=== PATIENT | female | born 1930 | race Two or more races ===

== ENCOUNTER 2016-05-04 13:54 | Inpatient (IN) | payer MEDICARE, MEDICAID ==
[~2016-05-04] VITALS: Ht 149.9 cm; Wt 79.4 kg
[2016-05-04] MEDS ORDERED: TRAMADOL HCL 50 MG TABLET ONE (15:13)
[2016-05-04] MEDS ORDERED: TRAMADOL HCL 50 MG TABLET PO ONE (15:30)
[2016-05-04 16:33] LABS: BASOPHILS % (AUTO) 0.3 % (0.0-2.0); DIFF TOTAL % 100 %; HEMATOCRIT 40 % (33-45); HEMOGLOBIN 12.9 g/dL (11.5-14.8); LYMPHOCYTES # (AUTO) 1.3 /CMM (0.8-4.8); LYMPHOCYTES % (AUTO) 14.6 % (20.0-44.0); MEAN CORPUSCULAR HEMOGLOBIN 28 PG (26.0-33.0); MEAN CORPUSCULAR HGB CONC 32 g/dl (31.0-36.0); MEAN CORPUSCULAR VOLUME 88 fL (82-100); MONOCYTES # (AUTO) 0.4 /CMM (0.1-1.30); MONOCYTES % (AUTO) 4.7 % (2.0-12.0); NEUTROPHILS # (AUTO) 7.1 /CMM (1.8-8.9); NEUTROPHILS % (AUTO) 80.4 % (43.0-81.0); PLATELET COUNT (AUTO) 246 /CMM (150-450); RED BLOOD CELL COUNT(AUTO) 4.53 MIL/uL (4.0-5.2); WHITE BLOOD COUNT (AUTO) 8.8 K/uL (4.3-11.0)
[2016-05-04 16:40] LABS: CALCIUM, SERUM 9.4 mg/dL (8.5-10.1); CREATININE 0.9 mg/dL (0.6-1.3); POTASSIUM 4.5 mmol/L (3.5-5.1)
[2016-05-04] MEDS ORDERED: CHOL100044 PO (17:05)
[2016-05-04] MEDS ORDERED: CITA20TA11 PO (17:05)
[2016-05-04] MEDS ORDERED: SIMV20TA6 PO (17:05)
[2016-05-04] MEDS ORDERED: PRIM250T PO (17:05)
[2016-05-04] MEDS ORDERED: ALPR0.255 PO (17:05)
[2016-05-04] MEDS ORDERED: LISI-603 PO (17:05)
[2016-05-04] MEDS ORDERED: OMEP40CA37 PO (17:05)
[2016-05-04] MEDS ORDERED: Z GUARD REMEDY 2 OZ OINT TP PRN (18:00)
[2016-05-04] MEDS ORDERED: MAG HYDROX/AL HYDROX/SIMETH 30 ML UDC PO PRN (18:00)
[2016-05-04] MEDS ORDERED: MAGNESIUM HYDROXIDE 30 ML UDC PO PRN (18:00)
[2016-05-04] MEDS ORDERED: ZOLPIDEM TARTRATE 5 MG TABLET PO PRN (18:00)
[2016-05-04] MEDS ORDERED: ONDANSETRON HCL/PF 4 MG/2 ML VIAL IVP PRN (18:00)
[2016-05-04 18:20] VITALS: BP 133/87
[2016-05-04 18:25] VITALS: BP 133/87
[2016-05-04] MEDS: SIMVASTATIN 20 MG TABLET PO SCH (18:52)
[2016-05-04] MEDS: ALPRAZOLAM 0.25 MG TABLET PO SCH (18:52)
[2016-05-04] MEDS: LISINOPRIL (20MG) 20 MG TABLET PO SCH (18:53)
[2016-05-04 20:00] VITALS: BP 125/72
[2016-05-04] MEDS: PANTOPRAZOLE 40 MG TABLET.DR PO SCH (20:36)
[2016-05-04] MEDS: PRIMIDONE 250 MG TABLET PO SCH (20:36)
[2016-05-04] MEDS: TRAMADOL HCL 50 MG TABLET PO PRN (21:05)
[2016-05-05] MEDS: TRAMADOL HCL 50 MG TABLET PO PRN ×2 (02:47→10:36)
[2016-05-05 06:31] LABS: KETONES,URINE NEGATIVE (NEGATIVE); LEUKOCYTE ESTERASE ,URINE NEGATIVE (NEGATIVE); PH,URINE 6.5 (5.0-8.0)
[2016-05-05] MEDS ORDERED: PRIMIDONE 250 MG TABLET PO SCH (07:00)
[2016-05-05 07:03] LABS: CALCIUM, SERUM 9.3 mg/dL (8.5-10.1); CREATININE 0.7 mg/dL (0.6-1.3); PHOSPHORUS 2.6 mg/dL (2.5-4.9); POTASSIUM 4.3 mmol/L (3.5-5.1)
[2016-05-05 07:08] LABS: ADD UA MICROSCOPIC YES
[2016-05-05 07:17] LABS: BASOPHILS % (AUTO) 0.2 % (0.0-2.0); DIFF TOTAL % 100 %; HEMATOCRIT 37 % (33-45); LYMPHOCYTES # (AUTO) 1.6 /CMM (0.8-4.8); MEAN CORPUSCULAR HEMOGLOBIN 29 PG (26.0-33.0); MEAN CORPUSCULAR HGB CONC 33 g/dl (31.0-36.0); MEAN CORPUSCULAR VOLUME 89 fL (82-100); MONOCYTES # (AUTO) 0.7 /CMM (0.1-1.30); MONOCYTES % (AUTO) 5.6 % (2.0-12.0); NEUTROPHILS # (AUTO) 10.2 /CMM (1.8-8.9); NEUTROPHILS % (AUTO) 81.2 % (43.0-81.0); PLATELET COUNT (AUTO) 240 /CMM (150-450); RED BLOOD CELL COUNT(AUTO) 4.13 MIL/uL (4.0-5.2); WHITE BLOOD COUNT (AUTO) 12.6 K/uL (4.3-11.0)
[2016-05-05 07:26] LABS: RBC,URINE 0-2 /HPF (0-2)
[2016-05-05 07:27] LABS: ADD URINE CULTURE YES; MUCUS,URINE Few /LPF (None Seen); WBC,URINE 0-2 /HPF (0-3)
[2016-05-05 07:55] VITALS: BP 115/60
[2016-05-05 08:00] VITALS: BP 115/60
[2016-05-05] MEDS: CITALOPRAM HYDROBROMIDE 20 MG TABLET PO SCH (08:18)
[2016-05-05] MEDS: CHOLECALCIFEROL 1,000 UNIT TABLET (VIT D3) PO SCH (08:18)
[2016-05-05] MEDS: PRIMIDONE 250 MG TABLET PO SCH ×2 (08:18→16:14)
[2016-05-05] MEDS: PANTOPRAZOLE 40 MG TABLET.DR PO SCH ×2 (08:19→20:44)
[2016-05-05] MEDS ORDERED: Medication Not On Formulary EA (Omeprazole 40 MG) PO SCH (09:00)
[2016-05-05] MEDS ORDERED: ONDANSETRON HCL/PF 4 MG/2 ML VIAL IM PRN (10:30)
[2016-05-05] MEDS ORDERED: ONDANSETRON 4 MG TAB.RAPDIS SL PRN (14:00)
[2016-05-05 16:00] VITALS: BP 96/52
[2016-05-05] MEDS: SIMVASTATIN 20 MG TABLET PO SCH (17:11)
[2016-05-05] MEDS: LISINOPRIL (20MG) 20 MG TABLET PO SCH (17:12)
[2016-05-05] MEDS: ALPRAZOLAM 0.25 MG TABLET PO SCH (17:12)
[2016-05-05] MEDS ORDERED: TRAMADOL HCL 50 MG TABLET PO PRN (18:00)
[2016-05-05 19:58] VITALS: BP 90/55
[2016-05-05] MEDS: ACETAMINOPHEN 325 MG TABLET PO PRN (21:46)
[2016-05-06] MEDS: ACETAMINOPHEN 325 MG TABLET PO PRN (06:42)
[2016-05-06] MEDS: PRIMIDONE 250 MG TABLET PO SCH ×2 (06:42→17:20)
[2016-05-06 06:55] LABS: BASOPHILS % (AUTO) 0.1 % (0.0-2.0); DIFF TOTAL % 100 %; HEMATOCRIT 35 % (33-45); HEMOGLOBIN 11.5 g/dL (11.5-14.8); LYMPHOCYTES # (AUTO) 2.3 /CMM (0.8-4.8); LYMPHOCYTES % (AUTO) 20.4 % (20.0-44.0); MEAN CORPUSCULAR HEMOGLOBIN 30 PG (26.0-33.0); MEAN CORPUSCULAR HGB CONC 33 g/dl (31.0-36.0); MEAN CORPUSCULAR VOLUME 89 fL (82-100); MONOCYTES % (AUTO) 8.9 % (2.0-12.0); NEUTROPHILS # (AUTO) 7.9 /CMM (1.8-8.9); NEUTROPHILS % (AUTO) 70.6 % (43.0-81.0); PLATELET COUNT (AUTO) 217 /CMM (150-450); WHITE BLOOD COUNT (AUTO) 11.1 K/uL (4.3-11.0)
[2016-05-06 07:17] LABS: CALCIUM, SERUM 9.1 mg/dL (8.5-10.1); CREATININE 0.9 mg/dL (0.6-1.3); POTASSIUM 4.3 mmol/L (3.5-5.1)
[2016-05-06 08:00] VITALS: BP 117/73
[2016-05-06] MEDS: CHOLECALCIFEROL 1,000 UNIT TABLET (VIT D3) PO SCH (08:17)
[2016-05-06] MEDS: PANTOPRAZOLE 40 MG TABLET.DR PO SCH ×2 (08:18→20:11)
[2016-05-06] MEDS: CITALOPRAM HYDROBROMIDE 20 MG TABLET PO SCH (08:18)
[2016-05-06] MEDS: TRAMADOL HCL 50 MG TABLET PO PRN ×2 (09:07→19:41)
[2016-05-06 16:00] VITALS: BP 101/63
[2016-05-06] MEDS: SIMVASTATIN 20 MG TABLET PO SCH (17:20)
[2016-05-06] MEDS: ALPRAZOLAM 0.25 MG TABLET PO SCH (17:20)
[2016-05-06] MEDS: LISINOPRIL (20MG) 20 MG TABLET PO SCH (17:21)
[2016-05-06 19:55] VITALS: BP 90/55
[2016-05-06 20:00] VITALS: BP 95/61
[2016-05-07] MEDS: TRAMADOL HCL 50 MG TABLET PO PRN (04:04)
[2016-05-07] MEDS: PRIMIDONE 250 MG TABLET PO SCH ×2 (05:57→08:37)
[2016-05-07 08:00] VITALS: BP 114/54
[2016-05-07] MEDS: CHOLECALCIFEROL 1,000 UNIT TABLET (VIT D3) PO SCH (08:36)
[2016-05-07] MEDS: PANTOPRAZOLE 40 MG TABLET.DR PO SCH (08:37)
[2016-05-07] MEDS: CITALOPRAM HYDROBROMIDE 20 MG TABLET PO SCH (08:37)
[2016-05-07] MEDS ORDERED: TRAM50TA2 PO (13:26)
[2016-05-07 16:13] VITALS: BP 116/74
[2016-05-07] MEDS: ACETAMINOPHEN 325 MG TABLET PO PRN (16:48)
== END 2016-05-07 17:44 | disposition home health service (06) | DRG 556 ==
LOC: ER 13:56 → MEDSG2 17:39
PROVIDERS: ADMIT Family Medicine; ATTEND Family Medicine
DX: M25.552 Pain in left hip (principal); E87.1 Hypo-osmolality and hyponatremia; I69.354 Hemiplegia and hemiparesis following cerebral infarction affecting left non-dominant side; F32.9 Major depressive disorder, single episode, unspecified; Z96.642 Presence of left artificial hip joint; Z96.659 Presence of unspecified artificial knee joint; I10 Essential (primary) hypertension; K21.9 Gastro-esophageal reflux disease without esophagitis; E55.9 Vitamin D deficiency, unspecified; F41.9 Anxiety disorder, unspecified; E78.5 Hyperlipidemia, unspecified; D72.829 Elevated white blood cell count, unspecified
CPT/HCPCS: 36415; 73510-TC; 73550-TC; 73700-TC; 80048-TC; 80061-TC; 81000-TC; 83735-TC; 84100-TC; 85025-TC; 87081-TC; 87086-TC; 87186-TC; 97001-TC; A4606; J2405; Q0162; Z7610

== ENCOUNTER 2016-06-29 05:51 | Inpatient (IN) | payer MEDICARE, MEDICAID ==
[~2016-06-29] VITALS: Ht 165.1 cm; Wt 99.3 kg
[~2016-06-29 05:51] MED LIST: ALPR0.255 PO; CHOL100044 PO; CITA20TA11 PO; LISI-603 PO; OMEP40CA37 PO; PRIM250T PO; SIMV20TA6 PO; TRAM50TA2 PO
--- NOTE | 2016-06-29 05:55 | NUR ---
To bed 3 a 86 yo female bibra with c/o persistent productive cought with white sputum x1 week, worse today. Breathing treatment albuterol 5 given on the field per ems. On room air, saturating at 95-97%. No sob. Wheezes and crackles heard on kia lungs. Sputum is white and yellow in color. Gowned patient. Placed on claims account manager. Awaiting for er md gill.
--- NOTE | 2016-06-29 06:10 | NUR ---
Dr Bowden at bedside.
--- NOTE | 2016-06-29 06:18 | NUR ---
straight cath done per Dr Bowden verbal order, urine collected, lab called for pickle pumper.
[2016-06-29 06:29] LABS: BASOPHILS % (AUTO) 0.1 % (0.0-2.0); HEMATOCRIT 37 % (33-45); LYMPHOCYTES # (AUTO) 2.4 /CMM (0.8-4.8); MEAN CORPUSCULAR HEMOGLOBIN 28 PG (26.0-33.0); MEAN CORPUSCULAR HGB CONC 32 g/dl (31.0-36.0); MEAN CORPUSCULAR VOLUME 87 fL (82-100); MONOCYTES # (AUTO) 1.1 /CMM (0.1-1.30); NEUTROPHILS # (AUTO) 10.7 /CMM (1.8-8.9); NEUTROPHILS % (AUTO) 74.9 % (43.0-81.0); PLATELET COUNT (AUTO) 308 /CMM (150-450); RDW COEFFICIENT OF VARIATION 15.5 (11.5-15.0); RED BLOOD CELL COUNT(AUTO) 4.24 MIL/uL (4.0-5.2); WHITE BLOOD COUNT (AUTO) 14.3 K/uL (4.3-11.0)
[2016-06-29] MEDS ORDERED: predniSONE 20 MG TABLET PO ONE (06:30)
[2016-06-29] MEDS ORDERED: ALBUTEROL FS 2.5 MG/3 ML VIAL.NEB NEB ONE (06:30)
[2016-06-29] MEDS ORDERED: GUAIFENESIN/D-METHORPHAN HB 5 ML UDC PO ONE (06:30)
[2016-06-29] MEDS ORDERED: predniSONE 20 MG TABLET ONE (06:33)
[2016-06-29] MEDS ORDERED: GUAIFENESIN/D-METHORPHAN HB 5 ML UDC ONE (06:33)
--- NOTE | 2016-06-29 06:37 | NUR ---
XRAY AT BEDSIDE.
[2016-06-29 06:38] LABS: CALCIUM, SERUM 9.5 mg/dL (8.5-10.1); POTASSIUM 3.7 mmol/L (3.5-5.1)
[2016-06-29 06:45] LABS: TROPONIN I 0.113 ng/mL (0.00-0.056)
[2016-06-29 06:46] LABS: LACTIC ACID 1.6 mmol/L (0.4-2.0)
[2016-06-29 06:47] LABS: PROTHROMBIN TIME 10.7 SECS (9.5-12.7)
[2016-06-29 06:53] LABS: ALBUMIN 3.6 g/dL (3.4-5.0); BILIRUBIN,TOTAL 0.2 mg/dL (0.2-1.0); TOTAL PROTEIN, SERUM 7.9 g/dL (6.4-8.2)
[2016-06-29] MEDS ORDERED: ALBUTEROL FS 2.5 MG/3 ML VIAL.NEB ONE (06:59)
--- NOTE | 2016-06-29 07:11 | NUR ---
followed up with rt vbg draw. Report given to sonia MARTINEZ for fortino.
[2016-06-29 07:16] LABS: APPEARANCE,URINE SL CLOUDY (CLEAR); BILIRUBIN,URINE NEGATIVE (NEGATIVE); BLOOD, URINE NEGATIVE Ery/uL (NEGATIVE); COLOR,URINE YELLOW (YELLOW); KETONES,URINE NEGATIVE (NEGATIVE); LEUKOCYTE ESTERASE ,URINE NEGATIVE (NEGATIVE); NITRITE, URINE POSITIVE (NEGATIVE); PH,URINE 5.5 (5.0-8.0); PROTEIN,URINE TRACE mg/dl (NEGATIVE); UGLUCOSE NEGATIVE (NEGATIVE); UROBILINOGEN,URINE 0.2 EU/dL (0.2)
[2016-06-29] MEDS ORDERED: ASPIRIN 81 MG TAB.CHEW ONE (07:23)
--- NOTE | 2016-06-29 07:23 | NUR ---
Received patient on bed, awake. On breathing treatment. Rt at bs for vbg
--- NOTE | 2016-06-29 07:24 | NUR ---
UNABLE TO ORDER VBG 2 X, ABG ORDERED FOR VBG INSTEAD PER CARLOZ TORRES RT INFORMED.
[2016-06-29] MEDS ORDERED: ASPIRIN 81 MG TAB.CHEW PO ONE (07:30)
[2016-06-29 07:35] LABS: ADD URINE CULTURE YES; BACTERIA,URINE Many /HPF (None Seen); SQUAMOUS EPITHELIAL CELL,UR Few /HPF (None Seen); WBC,URINE 0-2 /HPF (0-3)
[2016-06-29] MEDS ORDERED: NITROGLYCERIN 30 GM TUBE TP STA (07:37)
[2016-06-29] MEDS ORDERED: FLUT10.62 IH (07:43)
[2016-06-29] MEDS ORDERED: BENZ-13 PO (07:43)
[2016-06-29] MEDS ORDERED: DEXT30SU4 PO (07:43)
[2016-06-29] MEDS ORDERED: CEFTRIAXONE 1GM BAG (ER ONLY) 50 ML IV ONE (07:45)
[2016-06-29] MEDS ORDERED: FUROSEMIDE 40 MG/4 ML VIAL ONE (07:45)
[2016-06-29] MEDS ORDERED: NITROGLYCERIN PACKET 1 GM PACKET ONE (07:45)
--- NOTE | 2016-06-29 07:50 | NUR ---
PANEL ON-CALL PAGED
[2016-06-29] MEDS ORDERED: FUROSEMIDE 40 MG/4 ML VIAL IV ONE (08:00)
[2016-06-29] MEDS ORDERED: CEFTRIAXONE 1GM BAG (ER ONLY) 1 GM/50 ML PIGGYBACK IV ONE (08:00)
--- NOTE | 2016-06-29 08:09 | NUR ---
CALLED [facility] -- ITS [facility]
--- NOTE | 2016-06-29 08:11 | NUR ---
REPORT GIVEN TO NURSE EARLY FOR KAMILLA
[2016-06-29 09:45] VITALS: BP 111/62
--- NOTE | 2016-06-29 09:45 | NUR ---
RN NOTES PT RECEIVED FROM ER IN ROOM 114-2, A/Ox4, ON 02 2L N/C AT THIS TIME , C/O SOB ON EXERTION AND PRODUCTIVE COUGH, LEFT UPPER AND LOWER EXTREMIS FLACCID NOTED, +2 EDEMA TO LEFT LOWER LEG NOTED , REDNESS NOTED TO PERINEAL AREA NOTED, PICTURE TAKEN AND PLACED IN THE CHART, ON TELE ST IN 100'S, HERNANDEZ TO GRAVITY WITH YELLOW CLEAR URINE, , SUPPORTIVE FAMILY AT THE BEDSIDE, SR UPx3, CALL LIGHT WITHIN EASY REACH , ORIENTED TO ROOM ANS SURROUNDING , CONTINUE TO MONITOR PT CLOSELY AND NOTIFY MD FOR ANY SIGNIFICANT CHANGES.
--- NOTE | 2016-06-29 09:56 | NUR ---
PATIENT TRANSPORTED TO [address] [place] [address]
[2016-06-29] MEDS ORDERED: NITROGLYCERIN 0.4 MG/TAB BOTTLE SL PRN (11:00)
[2016-06-29] MEDS ORDERED: FUROSEMIDE 40 MG/4 ML VIAL IV SCH (11:00)
[2016-06-29] MEDS: AZITHROMYCIN 250 MG TABLET PO SCH (11:50)
[2016-06-29] MEDS: predniSONE 20 MG TABLET PO SCH (11:51)
[2016-06-29] MEDS: ENOXAPARIN SODIUM 40 MG/0.4 ML DISP.SYRIN SQ SCH (11:51)
[2016-06-29] MEDS: BENZONATATE 100 MG CAPSULE PO SCH ×2 (11:52→17:03)
[2016-06-29] MEDS: PRIMIDONE 250 MG TABLET PO SCH ×2 (12:51→21:07)
[2016-06-29 16:00] VITALS: BP 109/65
[2016-06-29] MEDS ORDERED: DEXTROMETHORPHAN POLISTIREX PO SCH (17:00)
[2016-06-29] MEDS: FLUTICASONE 110MCG 1 EA INHALER IH SCH (17:02)
[2016-06-29] MEDS: LISINOPRIL (20MG) 20 MG TABLET PO SCH (17:03)
[2016-06-29] MEDS: SIMVASTATIN 20 MG TABLET PO SCH (17:03)
--- NOTE | 2016-06-29 18:19 | NUR ---
RN NOTES PT STABLE , MEDICATED PER MD ORDER, GILSON ANY DISTRESS AT THIS TIME , NO SIGNIFICANT CHANGES NOTED ON THIS SHIFT .
--- NOTE | 2016-06-29 18:26 | NUR ---
RN NOTES PT STILL C/O COUGH , DR LAGUNAS NOTIFIED REGARDING STRONGER COUGH MED .
--- NOTE | 2016-06-29 19:30 | NUR ---
GLAZING MACHINE OPERATOR:RECEIVED PT A/O X 3. ON 3L 02 VIA NC WT NO ACUTE DISTRESS. NO C/O PAIN. WT WT EPISODES OF OCCASIONAL UNPRODUCTIVE COUGH. STILL AWAITING FOR MD FOR STRONGER COUGH MED. F/C PATENT AND INTACT DRAINING CLEAR YELLOW URINE TO GRAVITY. HOB KEPT ELEVATED. SAFETY PRECAUTION NOTED. WILL CONTINUE TO MONITOR.
[2016-06-29 20:00] VITALS: BP 119/77
[2016-06-29] MEDS ORDERED: PRIMIDONE 250 MG TABLET PO SCH (21:00)
[2016-06-29] MEDS: ALPRAZOLAM 0.25 MG TABLET PO SCH (21:07)
[2016-06-29] MEDS: CARVEDILOL 12.5 MG TABLET PO SCH (21:08)
[2016-06-29] MEDS: ALBUTEROL FS 2.5 MG/3 ML VIAL.NEB NEB PRN (21:12)
[2016-06-29] MEDS ORDERED: GUAIFENESIN/D-METHORPHAN HB 5 ML UDC PO PRN (22:00)
--- NOTE | 2016-06-29 22:15 | NUR ---
TELE: PT VERBALIZED SHE'S FEELING BETTER AFTER BREATHING TX. REMAINED SR-ST WT BBB ON TELE MONITOR. WILL CONTINUE TO MONITOR.
[2016-06-30] VITALS: BP_SYST 139; BP_SYST 93; BP_DIAS 48; BP_DIAS 76
--- NOTE | 2016-06-30 | NUR ---
SERVICE OR WORK DISPATCHER: DR. MCLAUGHLIN MADE AWARE THAT PT. DOES NOT WANT ROBITUSSIN DM AND SAID TO DC AND INCREASE TESSALON TO 200MG Q8H.
[2016-06-30] MEDS: ALBUTEROL FS 2.5 MG/3 ML VIAL.NEB NEB PRN ×4 (01:55→14:14)
[2016-06-30 04:00] VITALS: BP 93/41
[2016-06-30] MEDS ORDERED: BENZONATATE 100 MG CAPSULE PO ONE (04:22)
[2016-06-30] MEDS: BENZONATATE 100 MG CAPSULE PO SCH ×3 (05:39→21:19)
--- NOTE | 2016-06-30 06:50 | NUR ---
BUILDING SURVEYOR: REMAINED SR WT BBB. NO EPISODE OF COUGHING AT THIS TIME. VERBALIZED RELIEF WT BREATHING TX. ALL NEEDS MET.
[2016-06-30 06:58] LABS: BASOPHILS % (AUTO) 0.3 % (0.0-2.0); HEMATOCRIT 31 % (33-45); LYMPHOCYTES # (AUTO) 2.5 /CMM (0.8-4.8); LYMPHOCYTES % (AUTO) 20.6 % (20.0-44.0); MEAN CORPUSCULAR HEMOGLOBIN 29 PG (26.0-33.0); MEAN CORPUSCULAR HGB CONC 32 g/dl (31.0-36.0); MEAN CORPUSCULAR VOLUME 88 fL (82-100); MONOCYTES # (AUTO) 0.9 /CMM (0.1-1.30); MONOCYTES % (AUTO) 7.4 % (2.0-12.0); NEUTROPHILS # (AUTO) 8.8 /CMM (1.8-8.9); NEUTROPHILS % (AUTO) 71.7 % (43.0-81.0); PLATELET COUNT (AUTO) 231 /CMM (150-450); RDW COEFFICIENT OF VARIATION 15.1 (11.5-15.0); RED BLOOD CELL COUNT(AUTO) 3.48 MIL/uL (4.0-5.2); WHITE BLOOD COUNT (AUTO) 12.3 K/uL (4.3-11.0)
[2016-06-30 07:07] LABS: TROPONIN I 0.433 ng/mL (0.00-0.056)
--- NOTE | 2016-06-30 07:07 | NUR ---
DESK ASSISTANT: RECEIVED 0.433 TROPONIN FROM 0.113. ENDORSED TO DAY SHIFT RN, YASH TO INFORM MD. NO KAMILLA AT THIS TIME. PT REMAINED IN STABLE CONDITION. CHARGE NURSE ROBIN MADE AWARE.
--- NOTE | 2016-06-30 07:10 | NUR ---
RN INTIAL NOTE RECEIVED PT FROM PM NURSE A/OX3 PT ABLE TO COMMUNICATE. NC @3 L/MIN SPO2 @99%. NO C/O OF PAIN 0/10. F/C INTACT URINE YELLOW IN COLOR . IV R AC # 20 G FLUSHED AND PATENT. REPOSITIONED FOR COMFORT AND SAFETY. PT KEPT WARM AND DRY. WILL CONTINUE TO MONITOR CLOSELY.
[2016-06-30 07:35] LABS: ALBUMIN 3.1 g/dL (3.4-5.0); BILIRUBIN,TOTAL 0.1 mg/dL (0.2-1.0); CALCIUM, SERUM 8.6 mg/dL (8.5-10.1); POTASSIUM 3.6 mmol/L (3.5-5.1); TOTAL PROTEIN, SERUM 6.8 g/dL (6.4-8.2)
--- NOTE | 2016-06-30 07:45 | NUR ---
RN NOTE PT WANTED BREATHING TX SAYS SHE FEELS BETTER AFTER TX. CALL MAROD RT FOR TX.
[2016-06-30 07:56] LABS: THYROID STIMULATING HORMONE 7.46 uIU/mL (0.358-3.74)
[2016-06-30 08:00] VITALS: BP 101/62
--- NOTE | 2016-06-30 08:05 | NUR ---
RN NOTE SPOKE TO DR. FOX AWARE OF TROPONIN 0.433. MANUAL B/P TAKEN 100/[address] FOX AWARE.
[2016-06-30] MEDS: CHOLECALCIFEROL 1,000 UNIT TABLET (VIT D3) PO SCH (08:35)
[2016-06-30] MEDS: FLUTICASONE 110MCG 1 EA INHALER IH SCH ×2 (08:35→16:48)
[2016-06-30] MEDS: PRIMIDONE 250 MG TABLET PO SCH ×2 (08:35→21:20)
[2016-06-30] MEDS: ASPIRIN 81 MG TAB.CHEW PO SCH (08:35)
[2016-06-30] MEDS: predniSONE 20 MG TABLET PO SCH (08:35)
[2016-06-30] MEDS: ENOXAPARIN SODIUM 40 MG/0.4 ML DISP.SYRIN SQ SCH (08:37)
[2016-06-30] MEDS: FUROSEMIDE 40 MG/4 ML VIAL IV SCH ×3 (08:46→16:47)
[2016-06-30] MEDS: CEFTRIAXONE 1 G in IV D5W 50 ML IV SCH (08:57)
[2016-06-30] MEDS: CARVEDILOL 12.5 MG TABLET PO SCH ×2 (08:57→21:00)
[2016-06-30] MEDS ORDERED: IV NS 0.9% 250 ML IV ONE (08:57)
[2016-06-30] MEDS ORDERED: SECONDARY IV SET 1 EA INFUS.SET MC ONE (08:59)
[2016-06-30] MEDS ORDERED: IV SET PRIMARY 1 EA INFUS.SET MC ONE (08:59)
[2016-06-30] MEDS ORDERED: CITALOPRAM HYDROBROMIDE 20 MG TABLET PO SCH (09:00)
[2016-06-30] MEDS ORDERED: IV SET PRIMARY PUMP SET 1 EA INFUS.SET MC ONE (09:13)
[2016-06-30] MEDS ORDERED: POTASSIUM CHLORIDE 20 MEQ TAB.PRT.SR PO SCH (09:30)
[2016-06-30] MEDS: POTASSIUM CHLORIDE 20 MEQ TAB.PRT.SR PO SCH ×3 (10:20→12:34)
--- NOTE | 2016-06-30 11:06 | NUR ---
WOUND CARE CONSULT: PATIENT SEEN AND SKIN ASSESSMENT DONE. DAUGHTER AND PRIVATE SITTER AT THE BEDSIDE. PATIENT ALERT, ORIENTED, DIAGNOSED WITH LEFT SIDE PARALYSIS ACCORDING TO PATIENT, HAS F/C, CONTINENT OF STOOLS, JOSIANE 15. PATIENT STATES SHE DOES NOT NEED BARIMAXX BED SHE IS CURRENTLY COMFORTABLE. ACCORDING TO PATIENT, SHE AMBULATES WITH A POWER CHAIR. PATIENT ABLE TO TURN TO THE LEFT SIDE INDEPENDENTLY, NEEDS ASSIST TO TURN TO THE RIGHT SIDE. SEE TODAY'S SKIN ASSESSMENT IN PCS ALONG WITH RECOMMENDATIONS. RECOMMEND MOISTURE PROTECTION WITH Z GUARD ORDERED. TURN AND REPOSITION EVERY 2 HRS PATIENT CONDITION PERMITS, OFFLOAD BOTH HEELS. ALL DISCUSSED WITH NURSING STAFF. MD IN AGREEMENT WITH PLAN OF CARE. Addendum: 06/30/16 at 1113 by JACOB ASHTON WNDNU Amended: Links added.
[2016-06-30] MEDS: AZITHROMYCIN 250 MG TABLET PO SCH (11:26)
[2016-06-30] MEDS ORDERED: Z GUARD REMEDY 2 OZ OINT TP PRN (11:30)
[2016-06-30] MEDS: Z GUARD REMEDY 2 OZ OINT TP SCH ×2 (11:58→16:48)
[2016-06-30] MEDS ORDERED: GUAIFENESIN 300 MG/15 ML UDC PO PRN (13:00)
--- NOTE | 2016-06-30 14:45 | NUR ---
RN NOTE PT C/O CONSTIPATION. CALLED SHANNAN MORRIS NP AND ORDERED DULCOLAX SUPPOSITORY PRN.
[2016-06-30] MEDS ORDERED: BISACODYL SUPP (10 MG) 10 MG/SUPP.RECT SUPP.RECT RC PRN (15:30)
[2016-06-30 16:00] VITALS: BP 108/68
[2016-06-30] MEDS ORDERED: GUAIFENESIN LA 600 MG TABLET.SA PO PRN (16:00)
[2016-06-30] MEDS: LACTOBACILLUS RHAMNOSUS GG 1 EACH CAP.SPRINK PO SCH (16:48)
[2016-06-30] MEDS: SIMVASTATIN 20 MG TABLET PO SCH (17:46)
[2016-06-30] MEDS: LISINOPRIL (20MG) 20 MG TABLET PO SCH (17:46)
--- NOTE | 2016-06-30 19:10 | NUR ---
MED NOTE: ALL PINK STK MEDS REMOVED FROM EMAR FOR PT SAFETY.
--- NOTE | 2016-06-30 19:13 | NUR ---
RN CLOSING NOTE A/OX3 PT ABLE TO COMMUNICATE AND VERBALIZE NEEDS AND WANTS. NC @3 L/MIN SPO2 @95%. NO C/O OF PAIN 0/10. F/C INTACT URINE YELLOW IN COLOR . IV R AC # 20 G INTACT. REPOSITIONED FOR COMFORT AND SAFETY. PT KEPT WARM AND DRY ALL MEDICATIONS GIVEN AND ALL MD ORDERS CARRIED OUT. REPORT GIVEN TO PM NURSE FOR KAMILLA.
[2016-06-30 20:00] VITALS: BP 94/55
[2016-06-30] MEDS: ALPRAZOLAM 0.25 MG TABLET PO SCH (21:20)
[2016-07-01] MEDS: ALBUTEROL FS 2.5 MG/3 ML VIAL.NEB NEB PRN (02:12)
[2016-07-01 04:00] VITALS: BP 103/56
[2016-07-01 04:01] VITALS: BP 103/56
[2016-07-01] MEDS: BENZONATATE 100 MG CAPSULE PO SCH ×3 (05:00→21:05)
[2016-07-01 07:12] LABS: BASOPHILS % (AUTO) 0.3 % (0.0-2.0); HEMATOCRIT 32 % (33-45); HEMOGLOBIN 10.6 g/dL (11.5-14.8); LYMPHOCYTES % (AUTO) 24.9 % (20.0-44.0); MEAN CORPUSCULAR HEMOGLOBIN 29 PG (26.0-33.0); MEAN CORPUSCULAR HGB CONC 33 g/dl (31.0-36.0); MEAN CORPUSCULAR VOLUME 88 fL (82-100); MONOCYTES # (AUTO) 0.9 /CMM (0.1-1.30); MONOCYTES % (AUTO) 7.9 % (2.0-12.0); NEUTROPHILS # (AUTO) 7.9 /CMM (1.8-8.9); NEUTROPHILS % (AUTO) 66.9 % (43.0-81.0); PLATELET COUNT (AUTO) 222 /CMM (150-450); RDW COEFFICIENT OF VARIATION 15.5 (11.5-15.0); RED BLOOD CELL COUNT(AUTO) 3.67 MIL/uL (4.0-5.2); WHITE BLOOD COUNT (AUTO) 11.9 K/uL (4.3-11.0)
--- NOTE | 2016-07-01 07:30 | NUR ---
INITIAL NOTE PATIENT RESTING IN BED A+O X3, BREATHING AND LOC WNL. DENIES PAIN, DENIES SOB. ASSESSED NEEDS, PATIENT CONTENT. 3L O2 VIA NC. RAC IV PATENT, NO COMPLICATIONS @ SITE. SKIN WARM AND DRY. HERNANDEZ CATH PATENT WITH CLEAR YELLOW URINE. DISCUSSED PLAN OF CARE, PATIENT VERBALIZED UNDERSTANDING. CALL LIGHT IN REACH.
[2016-07-01 07:44] LABS: ALBUMIN 3.1 g/dL (3.4-5.0); BILIRUBIN,TOTAL 0.1 mg/dL (0.2-1.0); CALCIUM, SERUM 9.1 mg/dL (8.5-10.1); MAGNESIUM 1.7 mg/dL (1.8-2.4); POTASSIUM 4.2 mmol/L (3.5-5.1); TOTAL PROTEIN, SERUM 6.8 g/dL (6.4-8.2)
[2016-07-01 07:45] LABS: TROPONIN I 0.215 ng/mL (0.00-0.056)
[2016-07-01 08:00] VITALS: BP 96/61
[2016-07-01] MEDS: CEFTRIAXONE 1 G in IV D5W 50 ML IV SCH (08:21)
[2016-07-01] MEDS: LACTOBACILLUS RHAMNOSUS GG 1 EACH CAP.SPRINK PO SCH ×2 (08:21→16:58)
[2016-07-01] MEDS: predniSONE 20 MG TABLET PO SCH (08:21)
[2016-07-01] MEDS: PRIMIDONE 250 MG TABLET PO SCH ×2 (08:22→21:05)
[2016-07-01] MEDS: CHOLECALCIFEROL 1,000 UNIT TABLET (VIT D3) PO SCH (08:22)
[2016-07-01] MEDS: ASPIRIN 81 MG TAB.CHEW PO SCH (08:22)
[2016-07-01] MEDS: ENOXAPARIN SODIUM 40 MG/0.4 ML DISP.SYRIN SQ SCH (08:27)
[2016-07-01] MEDS: Z GUARD REMEDY 2 OZ OINT TP SCH ×2 (08:28→16:59)
[2016-07-01] MEDS: FLUTICASONE 110MCG 1 EA INHALER IH SCH ×2 (08:28→16:59)
[2016-07-01] MEDS: CARVEDILOL 12.5 MG TABLET PO SCH (09:00)
--- NOTE | 2016-07-01 10:41 | NUR ---
HOLDING 1100 LASIX, BP 91/56, HR 80, DR. FOX MADE AWARE, SAID OK TO HOLD WHEN SBP <100. WILL CONT' TO MONITOR.
[2016-07-01] MEDS: FUROSEMIDE 40 MG/4 ML VIAL IV SCH ×3 (10:42→19:00)
[2016-07-01] MEDS ORDERED: SECONDARY IV SET 1 EA INFUS.SET MC ONE (12:25)
[2016-07-01] MEDS: Magnesium 1GM/D5W 100ML PREMIX 100 ML IV SCH ×2 (12:31→13:57)
[2016-07-01] MEDS ORDERED: AZITHROMYCIN 250 MG TABLET PO SCH (13:00)
--- NOTE | 2016-07-01 15:30 | NUR ---
BP 80/45, NOTIFIED DR. FOX. DR. JOHNSON ASSIST PATIENT TO EAT AND DRINK. NNO
[2016-07-01 16:00] VITALS: BP 80/45
[2016-07-01] MEDS: SIMVASTATIN 20 MG TABLET PO SCH (17:01)
--- NOTE | 2016-07-01 17:07 | NUR ---
RN NOTE BP 90/61. PATIENT EATING AND DRINKING.
--- NOTE | 2016-07-01 19:16 | NUR ---
closing note last BP 95/60, HR 95 @ 1900. O2 sat >92% on room air, consistent, tolerating well. all doses of Lasix held due to hypotension. patient noted to have 200 ml urine output in gray catheter. gray leaking in diaper, appeared to have 2 voids in diaper today in addition to gray collection. Instructed patient on need to change gray catheter, patient replied "i prefer to keep this one until tomorrow because the doctor said i can go home tomorrow". educated patient further on need to change or d/c f/c. patient denied. endorsed to night nurse to monitor. left patient in stable condition, breathing and LOC wnl. call light in reach.
[2016-07-01 20:00] VITALS: BP 97/61
--- NOTE | 2016-07-01 20:13 | NUR ---
MS-1/LEASE BUYER PT MOVED TO ROOM 101 FOR PT SATISFACTION. WILL CONTINUE TO MONITOR.
[2016-07-01] MEDS: ALPRAZOLAM 0.25 MG TABLET PO SCH (21:05)
[2016-07-02 04:00] VITALS: BP 96/60
[2016-07-02] MEDS: BENZONATATE 100 MG CAPSULE PO SCH (05:00)
[2016-07-02] MEDS: ALBUTEROL FS 2.5 MG/3 ML VIAL.NEB NEB PRN (05:34)
--- NOTE | 2016-07-02 07:00 | NUR ---
RN INTIAL NOTE PT RECEIVED FROM PM NURSE A/O X3 PT ABLE TO VERBALIZE NEEDS AND WANTS. NO C/O OF PAIN 0/10. PT ON RA SPO2 91 % NO C/O OF ACUTE SOB. R HAND #22 G FLUSHED, INTACT AND PATENT. CALL LIGHT WITH IN REACH AND ALL SAFETY MEASURES IN PLACE. PT KEPT WARM AND DRY. SHUTTLER AT BEDSIDE. WILL CONTINUE TO MONITOR CLOSELY.
[2016-07-02 07:17] LABS: BASOPHILS % (AUTO) 0.3 % (0.0-2.0); HEMATOCRIT 34 % (33-45); HEMOGLOBIN 11.1 g/dL (11.5-14.8); LYMPHOCYTES # (AUTO) 2.6 /CMM (0.8-4.8); LYMPHOCYTES % (AUTO) 21.4 % (20.0-44.0); MEAN CORPUSCULAR HEMOGLOBIN 29 PG (26.0-33.0); MEAN CORPUSCULAR HGB CONC 33 g/dl (31.0-36.0); MEAN CORPUSCULAR VOLUME 88 fL (82-100); MONOCYTES # (AUTO) 0.9 /CMM (0.1-1.30); MONOCYTES % (AUTO) 7.7 % (2.0-12.0); NEUTROPHILS # (AUTO) 8.6 /CMM (1.8-8.9); NEUTROPHILS % (AUTO) 70.6 % (43.0-81.0); PLATELET COUNT (AUTO) 274 /CMM (150-450); RDW COEFFICIENT OF VARIATION 15.3 (11.5-15.0); RED BLOOD CELL COUNT(AUTO) 3.87 MIL/uL (4.0-5.2); WHITE BLOOD COUNT (AUTO) 12.2 K/uL (4.3-11.0)
[2016-07-02 07:43] LABS: ALBUMIN 3.2 g/dL (3.4-5.0); BILIRUBIN,TOTAL 0.1 mg/dL (0.2-1.0); CALCIUM, SERUM 9.1 mg/dL (8.5-10.1); CREATININE 0.9 mg/dL (0.6-1.3); MAGNESIUM 2.3 mg/dL (1.8-2.4); PHOSPHORUS 3.5 mg/dL (2.5-4.9); POTASSIUM 4.1 mmol/L (3.5-5.1)
[2016-07-02 08:00] VITALS: BP 107/62
[2016-07-02] MEDS: predniSONE 20 MG TABLET PO SCH (08:27)
[2016-07-02] MEDS: PRIMIDONE 250 MG TABLET PO SCH (08:27)
[2016-07-02] MEDS: CHOLECALCIFEROL 1,000 UNIT TABLET (VIT D3) PO SCH (08:27)
[2016-07-02] MEDS: ASPIRIN 81 MG TAB.CHEW PO SCH (08:27)
[2016-07-02] MEDS: LACTOBACILLUS RHAMNOSUS GG 1 EACH CAP.SPRINK PO SCH (08:27)
[2016-07-02] MEDS: Z GUARD REMEDY 2 OZ OINT TP SCH (08:29)
[2016-07-02] MEDS: FLUTICASONE 110MCG 1 EA INHALER IH SCH (08:29)
[2016-07-02] MEDS: CEFTRIAXONE 1 G in IV D5W 50 ML IV SCH (08:30)
[2016-07-02] MEDS ORDERED: ASPI81TA2 PO (08:33)
[2016-07-02] MEDS ORDERED: PRED10TA PO (08:33)
[2016-07-02] MEDS ORDERED: ALBUT2 NEB (08:33)
[2016-07-02] MEDS ORDERED: AZIT250T PO (08:33)
[2016-07-02] MEDS ORDERED: PRED20TA PO (08:33)
[2016-07-02] MEDS ORDERED: Guaifenesin PO (08:33)
[2016-07-02] MEDS ORDERED: FURO40TA5 PO (08:33)
[2016-07-02] MEDS ORDERED: LACT1CAP72 PO (08:33)
[2016-07-02] MEDS: ENOXAPARIN SODIUM 40 MG/0.4 ML DISP.SYRIN SQ SCH (08:42)
[2016-07-02] MEDS ORDERED: POTASSIUM CHLORIDE 20 MEQ TAB.PRT.SR PO SCH (10:30)
--- NOTE | 2016-07-02 11:40 | NUR ---
WATCH REPAIRER APPRENTICE NOTE PT DC HOME. DAUGHTER AND TELEVISION TECHNICIAN @ BEDSIDE AWARE OF DC. PT TRANSFERRED VIA AMBULANCE REPORT GIVEN TO EMT. PT STABLE REMOVED ID BAND, FC, AND IV. PT LEFT IN GOWN REFUSED REMOVAL. ALL DISCHARGE INSTRUCTIONS GIVE, ALL QUESTIONS ANSWERED AND CONCERNS ANSWERED, BELONGINGS LIST SIGNED AND TAKEN VIA BOAT HOP. PHOTO TAKEN AND PUT CHART. PT KEPT CLEAN AND DRY. ALL ORDERS AND MEDICATIONS CARRIED OUT. RX WITH [employer]ARY [employer] AND LICENSE NUMBER OF DR. BEBO Parada GIVEN.
== END 2016-07-02 12:00 | disposition home health service (06) | DRG 281 ==
LOC: ER 05:59 → TELE1 08:32 → MEDSG1 06-30 10:31
PROVIDERS: ADMIT Family Medicine; ATTEND Internal Medicine
DX: I11.0 Hypertensive heart disease with heart failure (principal); I21.4 Non-ST elevation (NSTEMI) myocardial infarction; J44.1 Chronic obstructive pulmonary disease with (acute) exacerbation; N39.0 Urinary tract infection, site not specified; E44.0 Moderate protein-calorie malnutrition; J98.11 Atelectasis; I50.33 Acute on chronic diastolic (congestive) heart failure; Z86.73 Personal history of transient ischemic attack (TIA), and cerebral infarction without residual deficits; E78.5 Hyperlipidemia, unspecified; K21.9 Gastro-esophageal reflux disease without esophagitis; F32.9 Major depressive disorder, single episode, unspecified; F41.9 Anxiety disorder, unspecified; Z96.651 Presence of right artificial knee joint; J06.9 Acute upper respiratory infection, unspecified; E03.9 Hypothyroidism, unspecified; E66.9 Obesity, unspecified; E55.9 Vitamin D deficiency, unspecified; I70.0 Atherosclerosis of aorta; K44.9 Diaphragmatic hernia without obstruction or gangrene; Z85.42 Personal history of malignant neoplasm of other parts of uterus; Z96.642 Presence of left artificial hip joint
CPT/HCPCS: 36415; 71010-TC; 80048-TC; 80053-TC; 80061-TC; 80076-TC; 81000-TC; 82550-TC; 83605-TC; 83735-TC; 83880; 84100-TC; 84439-TC; 84443-TC; 84481; 84484-TC; 85025-TC; 85730-TC; 87040-TC; 87081-TC; 87086-TC; 87186-TC; 93307-TC; 94799-TC; A4606; J0696; J1650; J1940; J3475; J7050; J7060; Z7610

== ENCOUNTER 2017-04-17 12:47 | Inpatient (IN) | payer MEDICARE, MEDICAID ==
[~2017-04-17] VITALS: Ht 167.6 cm; Wt 97.1 kg
[~2017-04-17 12:47] MED LIST changes: +ALBUT2 NEB; +ASPI-1169 PO; +AZIT250T PO; +BENZ-13 PO; +FLUT10.62 IH; +FURO40TA5 PO; +Guaifenesin PO; +LACT1CAP72 PO; +PRED10TA PO; +PRED20TA PO; -TRAM50TA2 PO
--- NOTE | 2017-04-17 12:55 | NUR ---
PT BBRA [phone] FROM HOME C/O LEFT SIDE OF BODY PAIN S/P SLIPPED AND FELL. FROM HER ELECTRIC WHEELCHAIR LAST WK, NO KO
--- NOTE | 2017-04-17 13:07 | NUR ---
PT IS COMFORTABLY RESTING IN BED. LISSETTE GONZALEZ MD AT BEDSIDE
--- NOTE | 2017-04-17 16:38 | NUR ---
CALLED NEENA FERNANDO SALES SERVICE REP, PAGED TO CALL BACK
--- NOTE | 2017-04-17 16:39 | NUR ---
DR.RUTHERFORD BARBARA PSYCHIATRIC REGISTERED NURSE
[2017-04-17] MEDS ORDERED: ASPI-1152 PO (16:58)
[2017-04-17] MEDS ORDERED: DOCU100C36 PO (16:58)
--- NOTE | 2017-04-17 17:45 | NUR ---
RN NOTES RECEIVED REPORT FROM JUAN JARAMILLO FROM EMERGENCY DEPT. PT. WILL BE GOING TO ROOM 206 BED 1.
[2017-04-17 18:30] VITALS: BP 147/67
[2017-04-17] MEDS ORDERED: MAG HYDROX/AL HYDROX/SIMETH 30 ML UDC PO PRN (18:30)
[2017-04-17] MEDS ORDERED: ZOLPIDEM TARTRATE 5 MG TABLET PO PRN (18:30)
[2017-04-17] MEDS ORDERED: Z GUARD REMEDY 2 OZ OINT TP PRN (18:30)
[2017-04-17] MEDS ORDERED: HYDROCODONE/APAP 5/325MG 1 EACH TABLET PO PRN (18:30)
[2017-04-17] MEDS ORDERED: MAGNESIUM HYDROXIDE 30 ML UDC PO PRN (18:30)
[2017-04-17] MEDS ORDERED: ONDANSETRON HCL/PF 4 MG/2 ML VIAL IVP PRN (18:30)
[2017-04-17] MEDS ORDERED: HYDROCODONE/APAP 10/325MG 1 EA TABLET PO PRN (18:30)
--- NOTE | 2017-04-17 18:30 | NUR ---
RN NOTES ADMISSION RECEIVED PT. IN BED IN MEDICALLY STABLE CONDITION. PT. IS AWAKE, A&OX4. PT.'S DAUGHTER, AND CAREGIVER IS AT BEDSIDE. PT. STATED SHE LIVES AT HOME WITH A CAREGIVER. VITAL SIGNS ARE WNL. ALL NEEDS MET AT THIS TIME.
[2017-04-17] MEDS ORDERED: MORPHINE SULFATE INJ 4 MG/ML DISP.SYRIN IV PRN (19:00)
--- NOTE | 2017-04-17 19:30 | NUR ---
RN CLOSING NOTES PT. IS IN BED A&OX4. BREATHING UNLABORED, AND EVENLY ON ROOM AIR. NO S/S OF ACUTE DISTRESS. IV ACCESS IS IN THE RIGHT HAND IS INTACT. BED IS IN LOWEST, AND LOCKED POSITION, 2 SIDE RAILS UP, AND INSTRUCTED PT. TO USE CALL LIGHT FOR ASSISTANCE. WILL ENDORSE REPORT TO NURSE.
--- NOTE | 2017-04-17 19:45 | NUR ---
RN OPENING NOTES RECEIVED REPORT FROM DAYSHIFT RNSUMANTH . FOUND Pt AWAKE, RESTING IN BED, WATCHING TV. RESPIRATIONS EVEN AND UNLABORED. NO S/S OF ACUTE DISTRESS OR SOB NOTED. Pt IS A/OX4, VERBAL, ABLE TO MAKE NEEDS KNOWN. NO C/O PAIN OR DISCOMFORT AT THIS TIME. IV ACCESS ON RHAND #22G. SAFETY MEASURES IN PLACE. BED LOW, LOCKED, HOB ELEVATED, SIDE RAILS UP, CALL LIGHT AND BEDSIDE TABLE WITHIN REACH. WILL CONTINUE TO MONITOR Pt THROUGHOUT THE NIGHT FOR SAFETY.
[2017-04-17 20:00] VITALS: BP 124/67
[2017-04-18 06:43] LABS: BASOPHILS % (AUTO) 0.1 % (0.0-2.0); HEMATOCRIT 32 % (33-45); HEMOGLOBIN 10.3 g/dL (11.5-14.8); LYMPHOCYTES % (AUTO) 25.3 % (20.0-44.0); MEAN CORPUSCULAR HEMOGLOBIN 26 PG (26.0-33.0); MEAN CORPUSCULAR HGB CONC 33 g/dl (31.0-36.0); MEAN CORPUSCULAR VOLUME 81 fL (82-100); MONOCYTES # (AUTO) 0.6 /CMM (0.1-1.30); MONOCYTES % (AUTO) 8.2 % (2.0-12.0); NEUTROPHILS # (AUTO) 5.2 /CMM (1.8-8.9); NEUTROPHILS % (AUTO) 66.4 % (43.0-81.0); PLATELET COUNT (AUTO) 280 /CMM (150-450); RDW COEFFICIENT OF VARIATION 17.8 (11.5-15.0); RED BLOOD CELL COUNT(AUTO) 3.89 MIL/uL (4.0-5.2); WHITE BLOOD COUNT (AUTO) 7.9 K/uL (4.3-11.0)
--- NOTE | 2017-04-18 06:45 | NUR ---
RN CLOSING NOTES NO SIGNIFICANT CHANGES IN Pt's CONDITION. Pt REMAINS STABLE AT THIS TIME. NO S/S OF ACUTE DISTRESS OR SOB NOTED DURING THE NIGHT. ALL NEEDS MET AND ATTENDED TO. SAFETY MEASURES IN PLACE. WILL ENDORSE TO DAYSHIFT RN FOR Pt's KAMILLA.
[2017-04-18] MEDS ORDERED: PRIMIDONE 250 MG TABLET PO SCH (07:00)
[2017-04-18 07:10] LABS: CALCIUM, SERUM 9.3 mg/dL (8.5-10.1); CARBON DIOXIDE 28 mmol/L (21-32); CHLORIDE 105 mmol/L (98-107); CREATININE 0.8 mg/dL (0.6-1.3); GLUCOSE 95 mg/dL (74-106); MAGNESIUM 2.3 mg/dL (1.8-2.4); PHOSPHORUS 4.1 mg/dL (2.5-4.9); SODIUM SERUM 141 mmol/L (136-145); UREA NITROGEN, BLOOD 21 mg/dL (7-18)
[2017-04-18 08:00] VITALS: BP 128/58
[2017-04-18] MEDS: CITALOPRAM HYDROBROMIDE 20 MG TABLET PO SCH ×2 (08:10→09:16)
[2017-04-18] MEDS: ACETAMINOPHEN 325 MG TABLET PO PRN ×2 (08:10→09:17)
[2017-04-18] MEDS: PANTOPRAZOLE 40 MG TABLET.DR PO SCH ×2 (08:10→09:17)
[2017-04-18] MEDS: CHOLECALCIFEROL 1,000 UNIT TABLET (VIT D3) PO SCH ×2 (08:10→09:17)
[2017-04-18] MEDS: ASPIRIN EC 81 MG TABLET.DR PO SCH ×2 (08:10→09:16)
[2017-04-18] MEDS ORDERED: TRAMADOL HCL 50 MG TABLET PO PRN (10:00)
--- NOTE | 2017-04-18 10:00 | NUR ---
RN NOTES FIRST SET OF AM MEDICATIONS DROPPED ON THE FLOOR BY THE PATIENT, WASTED. SECOND SET OF MEDICATIONS REMOVED FROM OMNICELL.
--- NOTE | 2017-04-18 11:00 | NUR ---
RN NOTES PATIENT SEEN BY DR. COLEY AND NEENA WILKINSON. RECEIVED ORDERS, ORDERS NOTED AND CARRIED OUT. PATIENT DENIES PAIN AT THIS TIME. DAUGHTER AND CAREGIVER AT BEDSIDE. CALL LIGHT WITHIN REACH, WILL CONTINUE TO MONITOR.
--- NOTE | 2017-04-18 16:00 | NUR ---
RN NOTES RECEIVED DISCHARGE ORDER FROM DR. COLEY. PATIENT EVALUATED BY PT. PATIENT IS BEING DISCHARGED WITH HOME HEALTH SERVICES. PATIENT AND DAUGHTER RECEIVED DISCHARGE INSTRUCTIONS AND BOTH VERBALIZED UNDERSTANDING. DAUGHTER SIGNED DISCHARGE PAPERWORKS. BELONGINGS RECONCILED. PIV REMOVED, PRESSURE APPLIED. SKIN ASSESSMENT COMPLETED, SKIN DRY AND INTACT. PATIENT ALERT AND ORIENTED X3, NO DISTRESS NOTED. AMBULANCE CAME AND TRANSFERRED PATIENT TO HOME.
[2017-04-18] MEDS ORDERED: SIMVASTATIN 20 MG TABLET PO SCH (18:00)
[2017-04-18] MEDS ORDERED: ALPRAZOLAM 0.25 MG TABLET PO SCH (18:00)
[2017-04-19] MEDS ORDERED: DOCUSATE SODIUM 100 MG CAPSULE PO SCH (09:00)
== END 2017-04-18 16:00 | disposition home health service (06) | DRG 535 ==
LOC: ER 12:49 → MEDSG2 17:53
PROVIDERS: ADMIT Internal Medicine; ATTEND Internal Medicine
DX: S32.592A Other specified fracture of left pubis, initial encounter for closed fracture (principal); E43 Unspecified severe protein-calorie malnutrition; E88.09 Other disorders of plasma-protein metabolism, not elsewhere classified; I69.354 Hemiplegia and hemiparesis following cerebral infarction affecting left non-dominant side; V00.811A Fall from moving wheelchair (powered), initial encounter; E78.5 Hyperlipidemia, unspecified; F32.9 Major depressive disorder, single episode, unspecified; F41.9 Anxiety disorder, unspecified; I10 Essential (primary) hypertension; K21.9 Gastro-esophageal reflux disease without esophagitis; Z90.710 Acquired absence of both cervix and uterus; E66.9 Obesity, unspecified; Z68.34 Body mass index [BMI] 34.0-34.9, adult; Y93.9 Activity, unspecified; Y92.009 Unspecified place in unspecified non-institutional (private) residence as the place of occurrence of the external cause; Z85.42 Personal history of malignant neoplasm of other parts of uterus; Z96.642 Presence of left artificial hip joint; Z96.659 Presence of unspecified artificial knee joint
CPT/HCPCS: 36415; 73060-TC; 73502; 73560-TC; 73700-TC; 80048-TC; 83735-TC; 84100-TC; 85025-TC; 87081-TC; A4606; Z7610